=== PATIENT | male | born 1985 | race Caucasian/White ===

== ENCOUNTER 2017-06-18 11:36 | Observation (INO) | payer OTHER ==
[2017-06-18] MEDS ORDERED: TORAdol 30 mg Injection IV ONE ×2 (12:15→14:29)
--- NOTE | 2017-06-18 12:19 | ERPHSYRPT ---
- History of Present Illness Time Seen by Provider: 06/18/17 12:05 Historian: patient Exam Limitations: no limitations Patient Subjective Stated Complaint: pt states he began having abdominal pain that strated when he woke up today at 1100am. pt states he normally does not have bowel movements every day and doesn't unrinate often. denies any vomiting or diarrhea. Triage Nursing Assessment: pt pink, warm, dry. abdomen soft, nontender. bowel sounds present in all 4 quads. pt afebrile. Physician History: 32 y/o male comes to the ER with complaints of abdominal pain around the umbilicus and right lower quadrant that started this morning. Pt describes the pain as sharp, constant, 5/10 and pt has not taken any pain meds. Pt also admits to burping a lot. Pt denies any fever, chills, nausea, vomiting, diarrhea , constipation or urinary symptoms. Pt does do heavy lifting at work. Timing/Duration: today Activities at Onset: sleep Quality: sharpness Abdominal Pain Onset Location: RLQ, periumbilical Pain Radiation: no radiation Severity of Pain-Max: moderate Severity of Pain-Current: moderate Modifying Factors: Improves With: nothing Associated Symptoms: denies symptoms Previous symptoms: no prior history Allergies/Adverse Reactions: No Known Drug Allergies Allergy (Unverified 06/18/17 12:04) Home Medications: Atomoxetine HCl [Strattera] 100 mg PO DAILY 06/18/17 [History] Bupropion HCl [Wellbutrin Xl] 150 mg PO DAILY 06/18/17 [History] Clonazepam 0.5 mg [Klonopin 0.5 MG] 0.5 mg PO DAILY PRN PRN 06/18/17 [ History] Hyoscyamine Sulfate [Levsin-Sl] 0.125 mg SL DAILY PRN PRN 06/18/17 [History] Omeprazole 20 MG [Prilosec 20 mg] 20 mg PO DAILY PRN PRN 06/18/17 [History] Sertraline HCl 25 mg PO DAILY 06/18/17 [History] Zolpidem Tartrate [Ambien] 10 mg PO HS PRN PRN 06/18/17 [History] Hx Tetanus, Diphtheria Vaccination/Date Given: Yes (up to date) Hx Influenza Vaccination/Date Given: No Hx Pneumococcal Vaccination/Date Given: No Immunizations Up to Date: Yes - Review of Systems Constitutional: No Fever, No Chills Eyes: No Symptoms Ears, Nose, & Throat: No Symptoms Respiratory: No Cough, No Dyspnea Cardiac: No Chest Pain, No Edema, No Syncope Abdominal/Gastrointestinal: Abdominal Pain, No Nausea, No Vomiting, No Diarrhea Genitourinary Symptoms: No Dysuria Musculoskeletal: No Back Pain, No Neck Pain Skin: No Rash Neurological: No Dizziness, No Focal Weakness, No Sensory Changes Psychological: No Symptoms Endocrine: No Symptoms All Other Systems: Reviewed and Negative - Past Medical History Pertinent Past Medical History: Yes Neurological History: No Pertinent History ENT History: No Pertinent History Cardiac History: No Pertinent History Respiratory History: No Pertinent History Endocrine Medical History: No Pertinent History Musculoskeletal History: No Pertinent History GI Medical History: Irritable Bowel Psycho-Social History: Attention Deficit Disorder, Depression Male Reproductive Disorders: No Pertinent History - Past Surgical History Past Surgical History: Yes Neuro Surgical History: No Pertinent History Cardiac: No Pertinent History Respiratory: No Pertinent History Gastrointestinal: No Pertinent History Genitourinary: No Pertinent History Musculoskeletal: Orthopedic Surgery Male Surgical History: No Pertinent History Other Surgical History: CARPEL TUNNEL - Social History Smoking Status: Never smoker Exposure to second hand smoke: No Drug Use: none Patient Lives Alone: No - Nursing Vital Signs Nursing Vital Signs: Initial Vital Signs Temperature 98.5 F 06/18/17 11:58 Pulse Rate 88 06/18/17 11:58 Respiratory Rate 18 06/18/17 11:58 Blood Pressure 140/85 06/18/17 11:58 O2 Sat by Pulse Oximetry 100 06/18/17 11:58 Pain Scale Pain Intensity 0 - Physical Exam General Appearance: mild distress, alert Eye Exam: PERRL/EOMI, eyes nml inspection Ears, Nose, Throat Exam: normal ENT inspection, pharynx normal, moist mucous membranes Neck Exam: normal inspection, non-tender, supple, full range of motion Respiratory Exam: normal breath sounds, lungs clear, No respiratory distress Cardiovascular Exam: regular rate/rhythm, normal heart sounds Gastrointestinal/Abdomen Exam: soft, normal bowel sounds, tenderness, guarding ( RLQ and periumbilical tenderness), No mass Back Exam: normal inspection, normal range of motion, No CVA tenderness, No vertebral tenderness Extremity Exam: normal inspection, normal range of motion, pelvis stable Neurologic Exam: alert, oriented x 3, cooperative, normal mood/affect, nml cerebellar function, sensation nml, No motor deficits Skin Exam: normal color, warm, dry SpO2: 100 Oxygen Delivery: Room Air - Course Nursing assessment & vital signs reviewed: Yes Ordered Tests: Medication Summary Discontinued Medications Generic Name Dose Route Start Last Admin Trade Name Freq PRN Reason Stop Dose Admin Hydrocodone Bitart/Acetaminophen 2 tab 06/18/17 18:17 06/19/17 08:32 [place] 5/325 Mg PO 06/23/17 18:16 2 tab Q4H PRN PRN Administration PAIN Hydrocodone Bitart/Acetaminophen 0 tab 06/19/17 10:30 [place] 5/325 Mg PO 06/23/17 18:16 Q4H PRN PRN PAIN Bupivacaine HCl Confirm 06/18/17 15:37 Sensorcaine 0.25% 10 Ml Administered 06/18/17 15:38 Dose 10 ml .ROUTE .STK-MED ONE Bupropion HCl 150 mg 06/19/17 10:00 06/19/17 11:32 Wellbutrin Xl 150 Mg PO 07/19/17 09:59 150 mg DAILY ED Administration Citric Acid/Sodium Citrate Confirm 06/18/17 15:30 Bicitra 30 Ml Cup Administered 06/18/17 15:31 Dose 30 ml .ROUTE .STK-MED ONE Dexamethasone Sodium Phosphate 4 mg 06/18/17 14:29 Decadron 4 Mg Inj IV 06/18/17 14:30 .STK-MED ONE Famotidine 20 mg 06/18/17 15:15 06/18/17 15:23 Pepcid 20 Mg Vial IV 06/18/17 15:16 20 mg 1HRPRIOR ED Administration Fentanyl Citrate 150 mcg 06/18/17 14:29 Sublimaze 250 Mcg/5 Ml IV 06/18/17 14:30 .STK-MED ONE Sodium Chloride 1,000 mls @ 100 mls/hr 06/18/17 14:45 06/18/17 14:46 Sodium Chloride 0.9% 1000 Ml IV 07/18/17 14:44 100 mls/hr .Q10H ED Administration Lactated Ringer's 1,000 mls @ 50 mls/hr 06/18/17 15:15 06/18/17 15:23 Lactated Ringers IV 06/19/17 11:14 50 mls/hr .Q20H ED Administration Cefoxitin Sodium 2 gm in 50 mls @ 100 mls/hr 06/18/17 16:00 06/18/17 15:23 Mefoxin 2 Gm Premix IV 07/18/17 15:59 100 mls/hr ONCALLTOOR ED Administration Lactated Ringer's Confirm 06/18/17 15:37 Lactated Ringers Administered 06/18/17 15:38 Dose 1,000 mls @ ud IV .STK-MED ONE Potassium Chloride/Dextrose/Sod Cl 1,000 mls @ 100 mls/hr 06/18/17 18:30 D5w/0.45ns W/ 40meq Kcl 1000 Ml IV 07/18/17 18:29 .Q10H ED Piperacillin Sod/Tazobactam Sod 3.375 gm in 100 mls @ 200 mls/hr 06/18/17 22: 00 06/19/17 06:23 Zosyn 3.375gm/100 Ml D5w IV 07/18/17 21:59 200 mls/hr Q6HT ED Administration Potassium Chloride/Dextrose/Sod Cl Confirm 06/18/17 18:31 D5w/0.45ns W/ 20meq Kcl 1000 Ml Administered 06/18/17 18:32 Dose 1,000 mls @ ud IV .STK-MED ONE Potassium Chloride/Dextrose/Sod Cl 1,000 mls @ 100 mls/hr 06/18/17 19:00 06/26 18:36 D5w/0.45ns W/ 20meq Kcl 1000 Ml IV 07/18/17 18:59 100 mls/hr .Q10H ED Administration Ketorolac Tromethamine 30 mg 06/18/17 12:15 06/18/17 12:47 Toradol 30 Mg Injection IV 06/18/17 12:16 30 mg STAT ONE Administration Ketorolac Tromethamine Confirm 06/18/17 12:39 Toradol 30 Mg Injection Administered 06/18/17 12:40 Dose 30 mg .ROUTE .STK-MED ONE Ketorolac Tromethamine 30 mg 06/18/17 14:39 Toradol 30 Mg Injection IV 06/23/17 14:38 Q6H PRN PRN PAIN Ketorolac Tromethamine 30 mg 06/18/17 14:29 Toradol 30 Mg Injection IV 06/18/17 14:30 .STK-MED ONE Midazolam HCl 2 mg 06/18/17 14:29 Versed 2 Mg/2 Ml Injection IV 06/18/17 14:30 .STK-MED ONE Morphine Sulfate 2 mg 06/18/17 14:39 Morphine Sulfate 2 Mg Inj IV 06/23/17 14:38 Q4H PRN PRN PAIN Morphine Sulfate 4 mg 06/18/17 18:17 Morphine Sulfate 4 Mg Inj IV 06/23/17 18:16 Q2H PRN PRN PAIN Morphine Sulfate 2 mg 06/18/17 18:24 Morphine Sulfate 2 Mg Inj IV 06/23/17 18:23 Q2H PRN PRN PAIN Ondansetron HCl 4 mg 06/18/17 18:17 Zofran 4 Mg/2 Ml Vial IV 07/18/17 18:16 Q6H PRN PRN NAUSEA/VOMITING Ondansetron HCl 4 mg 06/18/17 14:29 Zofran 4 Mg/2 Ml Vial IV 06/18/17 14:30 .STK-MED ONE Potassium Chloride 40 meq 06/18/17 13:09 06/18/17 13:46 Klor Con 10 Meq PO 06/18/17 13:10 40 meq STAT ONE Administration Potassium Chloride Confirm 06/18/17 13:19 Klor Con 10 Meq Administered 06/18/17 13:20 Dose 40 meq PO .STK-MED ONE Propofol 200 mg 06/18/17 14:29 Diprivan 200 Mg/20 Ml IV 06/18/17 14:30 .STK-MED ONE Rocuronium Orange 20 mg 06/18/17 14:29 Zemuron 100 Mg/10 Ml IV 06/18/17 14:30 .STK-MED ONE Sertraline HCl 25 mg 06/19/17 10:00 06/19/17 11:32 Zoloft 50 Mg Tablet PO 07/19/17 09:59 25 mg DAILY ED Administration Succinylcholine Chloride 20 mg 06/18/17 14:29 Quelicin Fliptop 200 Mg/10 Ml IV 06/18/17 14:30 .STK-MED ONE Lab/Rad Data: Laboratory Result Diagrams 06/18/17 12:26 06/18/17 12:26 Laboratory Results 06/18/17 06/18/17 06/18/17 Range/Units 12:45 12:26 12:26 WBC 12.1 H (4.0-10.5) K/mm3 RBC 4.53 (4.1-5.6) M/mm3 Hgb 12.9 (12.5-18.0) gm/dl Hct 39.2 L (42-50) % MCV 86.5 (78-100) fl MCH 28.5 (26-32) pg MCHC 32.9 (32-36) g/dl RDW 13.1 (11.5-14.0) % Plt Count 268 (150-450) K/mm3 MPV 10.5 H (6-9.5) fl Gran % 82.4 H (36.0-66.0) % Lymphocytes % 10.6 L (24.0-44.0) % Monocytes % 5.6 (0.0-12.0) % Eosinophils % 1.2 (0.00-5.0) % Basophils % 0.2 (0.0-0.4) % Basophils # 0.03 (0-0.4) Sodium 141 (136-145) mEq/L Potassium 3.1 L (3.5-5.1) mEq/L Chloride 108 H (98-107) mEq/L Carbon Dioxide 22.4 (21-32) mEq/L Anion Gap 13.5 (5-15) MEQ/L BUN 10 (9-20) mg/dL Creatinine 0.94 (0.55-1.30) mg/dl Estimated GFR > 60 ML/MIN Glucose 106 (70-110) MG/DL Calcium 8.7 (8.5-10.1) mg/dL Total Bilirubin 0.60 (0.2-1.0) mg/dL AST 29 (15-37) U/L ALT 48 (12-78) U/L Alkaline Phosphatase 112 (46-116) U/L Serum Total Protein 7.0 (6.4-8.2) gm/dL Albumin 3.7 (3.4-5.0) g/dL Amylase 32 (25-115) U/L Lipase 88 (73-393) U/L Ur Collection Type VOID Urine Color YELLOW (YELLOW) Urine Appearance HAZY (CLEAR) Urine pH 7.0 (5-6) Ur Specific [place] 1.015 (1.005-1.025) Urine Protein TRACE (Negative) Urine Ketones TRACE (NEGATIVE) Urine Blood NEGATIVE (0-5) Jaime/ul Urine Nitrite NEGATIVE (NEGATIVE) Urine Bilirubin NEGATIVE (NEGATIVE) Urine Urobilinogen 4 (0-1) mg/dL Ur Leukocyte Esterase TRACE (NEGATIVE) Urine Microscopic RBC 0-2 (0-2) /HPF Urine Microscopic WBC 2-5 (0-5) /HPF Ur Epithelial Cells RARE (FEW) /HPF Urine Bacteria RARE (NEGATIVE) /HPF Urine Mucus MODERATE (NEGATIVE) /HPF Urine Sperm PRESENT (NEGATIVE) /HPF Urine Glucose NEGATIVE (NEGATIVE) mg/dL Specimen Received 06/18/17 1245 - Progress Progress: improved Progress Note: 06/18/17 14:[address] scan abd/pelvis shows an acute appendicitis. Pt has relief of pain after receiving toradol. Pt has a white count of 12,000 but no fever. Pt has been admitted to general surgeon, Dr Germain for [facility] - Departure Time of Disposition: 14:43 Departure Disposition: In-patient Admission Clinical Impression: Appendicitis Qualifiers: Appendicitis type: acute appendicitis Acute appendicitis type: unspecified acute appendicitis type Qualified Code(s): K35.80 - Unspecified acute appendicitis Condition: Stable Critical Care Time: Yes Critical Care Time(excluding separately billable procedures): 30-74 minutes
[2017-06-18] MEDS ORDERED: TORAdol 30 mg Injection ONE (12:39)
[2017-06-18 12:42] LABS: BASOPHIL % 0.2 % (0.0-0.4); Eosinophil % 1.2 % (0.00-5.0); Granulocytes % 82.4 % (36.0-66.0); Lymphocytes % 10.6 % (24.0-44.0); Mean Cell Volume 86.5 fl (78-100); Mean Corpuscular Hemoglobin 28.5 pg (26-32); Mean Platelet Volume 10.5 fl (6-9.5); Monocytes % 5.6 % (0.0-12.0); Platelet Count 268 K/mm3 (150-450); Red Blood Count 4.53 M/mm3 (4.1-5.6); Red Cell Distribution Width 13.1 % (11.5-14.0); White Blood Count 12.1 K/mm3 (4.0-10.5)
[2017-06-18 12:53] LABS: ALBUMIN 3.7 g/dL (3.4-5.0); ALKALINE PHOSPHATASE 112 U/L (46-116); ANION GAP 13.5 MEQ/L (5-15); BLOOD UREA NITROGEN 10 mg/dL (9-20); CHLORIDE 108 mEq/L (98-107); Carbon Dioxide 22.4 mEq/L (21-32); Glucose 106 MG/DL (70-110); LIPASE 88 U/L (73-393); Potassium 3.1 mEq/L (3.5-5.1); SGOT/AST 29 U/L (15-37); SGPT/ALT 48 U/L (12-78); SODIUM 141 mEq/L (136-145)
[2017-06-18] MEDS ORDERED: Klor Con 10 MEQ PO ONE ×2 (13:09→13:19)
[2017-06-18 13:15] LABS: Bilirubin NEGATIVE (NEGATIVE); Blood NEGATIVE Ery/ul (0-5); COMPLETE URINE MICROSCOPIC? YES; Collection Type VOID; Glucose NEGATIVE (NEGATIVE); Leukocyte Esterase TRACE (NEGATIVE)
[2017-06-18 13:16] LABS: ADD URINE CULTURE? YES (NO); Bacteria RARE /HPF (NEGATIVE); Epithelial Cells RARE /HPF (FEW); Mucus MODERATE /HPF (NEGATIVE)
[2017-06-18] MEDS ORDERED: Zemuron 100 MG/10 ML IV ONE (14:29)
[2017-06-18] MEDS ORDERED: Zofran 4 MG/2 ML VIAL IV ONE (14:29)
[2017-06-18] MEDS ORDERED: Versed 2 MG/2 ML Injection IV ONE (14:29)
[2017-06-18] MEDS ORDERED: SUBLIMAZE 250 MCG/5 ML IV ONE (14:29)
[2017-06-18] MEDS ORDERED: DIPRIVAN 200 MG/20 ML IV ONE (14:29)
[2017-06-18] MEDS ORDERED: Quelicin Fliptop 200 MG/10 ML IV ONE (14:29)
[2017-06-18] MEDS ORDERED: BRIDION 200MG/2ML IV ONE (14:29)
[2017-06-18] MEDS ORDERED: Decadron 4 MG INJ IV ONE (14:29)
[2017-06-18] MEDS ORDERED: TORAdol 30 mg Injection IV PRN (14:39)
[2017-06-18] MEDS ORDERED: MORPHINE SULFATE 2 MG INJ IV PRN ×2 (14:39→18:24)
[2017-06-18] MEDS ORDERED: Sodium Chloride 0.9% 1000 ML 1,000 ML IV SCH (14:45)
[2017-06-18] MEDS ORDERED: Pepcid 20 MG VIAL IV SCH (15:15)
[2017-06-18] MEDS ORDERED: Lactated Ringers 1,000 ML IV SCH (15:15)
[2017-06-18] MEDS ORDERED: BICITRA 30 ML CUP ONE (15:30)
[2017-06-18] MEDS ORDERED: Lactated Ringers 1,000 ML IV ONE (15:37)
[2017-06-18] MEDS ORDERED: Sensorcaine 0.25% 10 ML ONE (15:37)
[2017-06-18] MEDS ORDERED: MEFOXIN 2 GM PREMIX** 2 GM/50 ML ML IV SCH (16:00)
--- NOTE | 2017-06-18 16:17 | CONS ---
CONSULT DATE: 06/18/2017 HISTORY: A 32 year-old gentleman had some periumbilical aches and pains that woke him up today at 1100 hours. He denied any vomiting or diarrhea. He denies any fever. He failed to improve so he was taken to the hospital. He denied any bloody stools. PAST MEDICAL HISTORY: He has had some ADHD, some irritable bowel in the past. He denies any heart problems, diabetes or inflammatory bowel disease. PAST SURGICAL HISTORY: Carpal tunnel release in the past. He said he had a cholecystectomy in the past. He also had some foot surgery in the past. HOME MEDICATIONS: He had been on some omeprazole, bupropion, Sertraline, Strattera. According to the record the patient was unsure what medications he is on. ALLERGIES: NKDA. FAMILY HISTORY: Uterine cancer, breast cancer. REVIEW OF SYSTEMS: Twelve systems reviewed per admission assessment, pertinent for as noted above. No chest pain or palpitations. Other systems negative or noncontributory as above and per preadmission questionnaire. His abdominal pain has a little improved since he got some pain medication earlier. LAB DATA AND TESTS: White blood cell count 12.1, hemoglobin 12.9, PLT 268,000. Liver function test unremarkable. Lipase and amylase normal. CT scan preliminary report per the radiologist showed dilated appendix with some inflammatory changes and appendicolith. PHYSICAL EXAMINATION: Temperature 98.5F, pulse 88, blood pressure 140/85. GENERAL: No acute distress. HEENT: Sclera nonicteric. NECK: No JVD. CHEST: Equal excursion, nonlabored breathing. CVS: Regular rate and rhythm. ABDOMEN: Soft. No peritoneal signs. He does have some tenderness mid abdomen in the right lower quadrant. No rebound currently. EXTREMITIES: No significant edema. NEURO: Alert, moving extremities symmetrically. No gross motor deficits noted. IMPRESSION: Acute abdominal pain. CT, history, elevated leukocytosis, history and physical exam suspicious for possible early acute appendicitis. I feel the patient will benefit from diagnostic laparoscopy, laparoscopic appendectomy possible open when OR time available. Risks and benefits explained to the patient and his father including but not limited to bleeding or infection, risk of trocar injury or hernia, small risk bowel, bladder or blood vessel injury, small risk of subsequent intra-abdominal abscess or fistula formation possibly requiring percutaneous or open drainage even at a later date, general risk of anesthesia, deep venous thrombosis, pulmonary embolism, pneumonia but not limited to, risk of obstruction or ileus, risk of ongoing infection, as well as possibility of converting to open procedure, possible longer hospital stay pending the degree of infection. They understand and agree to the planned procedure, will proceed with diagnostic laparoscopy, laparoscopic appendectomy, possible open when OR time available.
--- NOTE | 2017-06-18 16:34 | OP ---
SURGERY DATE/TIME: 06/18/2017 1540 PREOPERATIVE DIAGNOSIS: Acute abdominal pain, acute appendicitis. POSTOPERATIVE DIAGNOSIS: Acute abdominal pain, acute suppurative appendicitis non-perforated. PROCEDURE: Laparoscopic appendectomy. SURGEON: Dr. Derik Harden. ANESTHESIA: General. ESTIMATED BLOOD LOSS: Minimal. INDICATIONS: As noted above. Risks and benefits explained in detail but not limited to, consent was obtained. DESCRIPTION OF PROCEDURE AND FINDINGS: The patient was taken to the operating room. General anesthesia was induced. The abdomen prepped and draped in usual sterile fashion. After official time out and no disagreement with the planned procedure, a transverse incision made at supraumbilical area. Fascia grasped, towel clamp pushing the abdominal wall upwards. Veress needle inserted and tested with saline. Pneumoperitoneum accomplished insufflating from opening pressure of 0 to 15. A 5 mm bladeless port and camera were inserted without difficulty followed by a lower midline 5 mm port and a 12 mm right mid abdomen port. Careful inspection of the abdomen revealed definitely acutely suppurative appendicitis definitely warranted appendectomy. Carefully elevated upwards. Endo-KENIA stapler fired across the base of the appendix and across the residual mesoappendix as was necessary with oozing of the staple line. A couple clips once the clipper became available was used to clip the staple line. The appendix was then placed in the [place] sac pulled free and passed off. Port is replaced. Copious amount of irrigation accomplished in the right lower quadrant irrigating until clear. Good hemostasis noted. It was felt there was no benefit from drain placement. The fascial defect 12 mm port defect closed with puncture closure device under direct vision with the camera with #1 Vicryl. Pneumoperitoneum decompressed. The wound is irrigated out. Skin incision closed with 4-0 Vicryl. Steri-Strips and sterile dressing applied. 0.25% Marcaine local injected along the skin incision fascial defects. The patient tolerated the procedure well. There were no immediate complications. His father was not out in the waiting area initially, will double check if he is in the hospital.
[2017-06-18] MEDS ORDERED: Zofran 4 MG/2 ML VIAL IV PRN (18:17)
[2017-06-18] MEDS ORDERED: MORPHINE SULFATE 4 MG INJ IV PRN (18:17)
[2017-06-18] MEDS ORDERED: D5w/0.45NS W/ 40MEQ KCl 1000 Ml 1,000 ML IV SCH (18:30)
[2017-06-18] MEDS ORDERED: D5W/0.45NS W/ 20mEq KCl 1000 ML 1,000 ML IV ONE (18:31)
[2017-06-18] MEDS ORDERED: D5W/0.45NS W/ 20mEq KCl 1000 ML 1,000 ML IV SCH (19:00)
[2017-06-18] MEDS: NORCO 5/325 MG PO PRN (20:36)
[2017-06-18] MEDS: Zosyn 3.375GM/100 Ml D5W 3.375 GM/100 ML IVPB IV SCH (20:38)
--- NOTE | 2017-06-18 21:22 | XRAY ---
Indication: Right lower quadrant pain. Multiple contiguous axial images obtained through the abdomen and pelvis using 80 cc Isovue-370 contrast only. Comparison: None Lung bases are. Heart is not enlarged. Noncontrasted stomach and bowel loops appear nonobstructed. Appendix is distended up to 11 mm with wall thickening/enhancement and appendicolith favoring acute appendicitis. No free fluid/air. 7 mm right mid renal cortical cyst. Previous cholecystectomy. Remaining liver, pancreas, spleen, adrenal glands, kidneys, ureters, urinary bladder, and aorta appear unremarkable. No pathologic retroperitoneal lymphadenopathy. Osseous structures intact. Impression: 1. CT findings favoring acute appendicitis. No perforation/complications. 2. Subcentimeter right renal cyst. Comment: Preliminary interpretation was made by [facility]. No discrepancy. CTDI 17.76
[2017-06-19] MEDS: Zosyn 3.375GM/100 Ml D5W 3.375 GM/100 ML IVPB IV SCH ×2 (01:23→06:23)
[2017-06-19 05:50] LABS: Mean Cell Volume 87.7 fl (78-100); Mean Corpuscular Hemoglobin 28.2 pg (26-32); Mean Platelet Volume 10.6 fl (6-9.5); Platelet Count 276 K/mm3 (150-450); Red Blood Count 4.39 M/mm3 (4.1-5.6); Red Cell Distribution Width 13.1 % (11.5-14.0); White Blood Count 14.6 K/mm3 (4.0-10.5)
[2017-06-19] MEDS: NORCO 5/325 MG PO PRN (08:32)
[2017-06-19] MEDS ORDERED: MEDICATION INTERVENTION MC PRN (08:35)
[2017-06-19] MEDS ORDERED: NON-FORMULARY ITEM (Sertraline Hcl [Sertraline Hcl] 25 MG) PO SCH (10:00)
[2017-06-19] MEDS ORDERED: Wellbutrin XL 150 MG PO SCH (10:00)
[2017-06-19] MEDS ORDERED: ZOLOFT 50 MG TABLET PO SCH (10:00)
[2017-06-19] MEDS ORDERED: ATOMOXETINE HCL 100 MG PO SCH (10:00)
[2017-06-19] MEDS ORDERED: NORCO 5/325 MG PO PRN (10:30)
[2017-06-19 11:44] VITALS: BP 121/66; PULSE 85
--- NOTE | 2017-06-19 12:29 | PCM.DCORD ---
- Discharge Discharge Date: 06/19/17 Disposition: Home, Self-Care Condition: Stable Prescriptions: New Amoxicillin/Potassium Clav [Augmentin 875 mg (Amox Tr-K Clv 875-125 mg)] 1 each PO BID #0 tablet Continue Bupropion HCl [Wellbutrin Xl] 150 mg PO DAILY Sertraline HCl 25 mg PO DAILY Atomoxetine HCl [Strattera] 100 mg PO DAILY Omeprazole 20 MG [Prilosec 20 mg] 20 mg PO DAILY PRN PRN PRN Reason: Stomach Upset Zolpidem Tartrate [Ambien] 10 mg PO HS PRN PRN PRN Reason: Anxiety Hyoscyamine Sulfate [Levsin-Sl] 0.125 mg SL DAILY PRN PRN PRN Reason: Stomach Upset Clonazepam 0.5 mg [Klonopin 0.5 MG] 0.5 mg PO DAILY PRN PRN PRN Reason: Anxiety Follow up with: HIRA SALDANA [Primary Care Provider] -
--- NOTE | 2017-06-19 12:29 | PCM.HP ---
History of Present Illness - Chief Complaint Chief Complaint: appendix Date: 06/19/17 History of Present Illness: is a 32 year old male. Who presented with some periumbilical pain that woke him up yesterday and began to worsen to the point of presenting to the ED. He denied any vomiting or diarrhea. He denies any fever. IN ED he had CT suggestive of acute appendicitis and an elevated wbc, Dr. Harden was thus consulted and he was taken to OR yesterday for lap appy that was uncomplicated and he is feeling well today with some mild soreness in his right lower quadrant. He has been eating and drinking with no complications. Urinating well no bowel movement yet. He is ambulating without difficulty. - Review of Systems Constitutional: No Fever, No Chills Eyes: No Symptoms Ears, Nose, & Throat: No Symptoms Respiratory: No Cough, No Short Of Breath Cardiac: No Chest Pain, No Edema, No Syncope Abdominal/Gastrointestinal: No Abdominal Pain, No Nausea, No Vomiting, No Diarrhea Genitourinary Symptoms: No Dysuria Musculoskeletal: No Back Pain, No Neck Pain Skin: No Rash Neurological: No Dizziness, No Focal Weakness, No Sensory Changes Psychological: No Symptoms Endocrine: No Symptoms Hematologic/Lymphatic: No Symptoms Immunological/Allergic: No Symptoms Medications & Allergies Home Medications: Home Medication List Atomoxetine HCl [Strattera] 100 mg PO DAILY 06/18/17 [History Confirmed 06/18/17 ] Bupropion HCl [Wellbutrin Xl] 150 mg PO DAILY 06/18/17 [History Confirmed ] Clonazepam 0.5 mg [Klonopin 0.5 MG] 0.5 mg PO DAILY PRN PRN 06/18/17 [ History Confirmed 06/18/17] Hyoscyamine Sulfate [Levsin-Sl] 0.125 mg SL DAILY PRN PRN 06/18/17 [History Confirmed 06/18/17] Omeprazole 20 MG [Prilosec 20 mg] 20 mg PO DAILY PRN PRN 06/18/17 [History Confirmed 06/18/17] Sertraline HCl 25 mg PO DAILY 06/18/17 [History Confirmed 06/18/17] Zolpidem Tartrate [Ambien] 10 mg PO HS PRN PRN 06/18/17 [History Confirmed 06/18] Amoxicillin/Potassium Clav [Augmentin 875 mg (Amox Tr-K Clv 875-125 mg)] 1 each PO BID #0 tablet 06/19/17 [Rx] Allergies/Adverse Reactions: Allergies Allergy/AdvReac Type Severity Reaction Status Date / Time No Known Drug Allergies Allergy Unverified 06/18/17 12:04 - Past Medical History Past Medical History: Yes Neurological History: No Pertinent History ENT History: No Pertinent History Cardiac History: No Pertinent History Respiratory History: No Pertinent History Endocrine Medical History: No Pertinent History Musculoskelatal History: No Pertinent History GI Medical History: Irritable Bowel History: No Pertinent History Pyscho-Social History: Attention Deficit Disorder, Depression, Other Male Reproductive Disorders: No Pertinent History Comment: asperger's - Past Surgical History Past Surgical History: Yes Neuro Surgical History: No Pertinent History Cardiac History: No Pertinent History Respiratory Surgery: No Pertinent History GI Surgical History: No Pertinent History Genitourinary Surgical Hx: No Pertinent History Musculskeletal Surgical Hx: Orthopedic Surgery Male Surgical History: No Pertinent History Other Surgical History: carpel tunnel, grabiel feet - Social History Smoking Status: Never smoker Exposure to second hand smoke: No Alcohol: None Drug Use: none - Physical Exam Vital Signs: Vital Signs - 24 hr Temp Pulse Resp BP Pulse Ox 06/19/17 11:43 97.9 F 85 18 121/66 96 06/19/17 07:43 98.1 F 88 18 101/49 98 06/19/17 04:04 97.9 F 82 16 99/52 94 L 06/18/17 23:45 97.7 F 94 H 18 115/83 95 06/18/17 20:30 97.8 F 97 H 17 113/55 94 L 06/18/17 19:30 97.9 F 103 H 17 113/61 93 L 06/18/17 18:30 97.9 F 99 H 18 121/72 97 06/18/17 17:56 97.9 F 75 14 126/65 94 L 06/18/17 17:50 97.9 F 75 14 126/65 94 L 06/18/17 17:25 97.9 F 75 14 110/57 95 06/18/17 15:20 98.0 F 104 H 18 129/61 96 06/18/17 15:18 98.0 F 104 H 129/61 06/18/17 15:12 89 18 126/58 100 06/18/17 15:02 98 F 104 H 18 129/61 96 06/18/17 14:53 89 18 126/58 100 06/18/17 14:44 100 06/18/17 13:51 73 18 130/77 98 06/18/17 13:04 78 16 122/76 98 Oxygen-Last 24 hours O2 Percentage 2 Liters = 28% General Appearance: no apparent distress, alert Neurologic Exam: alert, oriented x 3, cooperative, normal mood/affect, nml cerebellar function, nml station & gait, sensation nml, No motor deficits Eye Exam: PERRL/EOMI, eyes nml inspection Ears, Nose, Throat Exam: normal ENT inspection, TMs normal, pharynx normal, moist mucous membranes Neck Exam: normal inspection, non-tender, supple, full range of motion Respiratory Exam: normal breath sounds, lungs clear, No respiratory distress Cardiovascular Exam: regular rate/rhythm, normal heart sounds, normal peripheral pulses Gastrointestinal/Abdomen Exam: soft, normal bowel sounds, tenderness (incisions clean and dry mild right Lower quadrant tendneress), No distention, No mass, No guarding Back Exam: normal inspection, normal range of motion, No CVA tenderness, No vertebral tenderness Extremity Exam: normal inspection, normal range of motion, pelvis stable Skin Exam: normal color, warm, dry, No rash Lymphatic Exam: No adenopathy Results - Labs Lab/Micro Results: Lab Results-Last 24 Hours 06/19/17 Range/Units 05:25 WBC 14.6 H (4.0-10.5) K/mm3 RBC 4.39 (4.1-5.6) M/mm3 Hgb 12.4 L (12.5-18.0) gm/dl Hct 38.5 L (42-50) % MCV 87.7 (78-100) fl MCH 28.2 (26-32) pg MCHC 32.2 (32-36) g/dl RDW 13.1 (11.5-14.0) % Plt Count 276 (150-450) K/mm3 MPV 10.6 H (6-9.5) fl Assessment/Plan (1) Appendicitis Status: Acute Qualifiers: Appendicitis type: acute appendicitis Acute appendicitis type: unspecified acute appendicitis type Qualified Code(s): K35.80 - Unspecified acute appendicitis Assessment & Plan: symptoms improving tolerating po well he was admitted to my service but I was not contacted until 830 this am about his admission, he is now doing well it appears the surgery has improved his symptoms he is tolerating po well Dr. Baer has seen today and is comfortable with discharge today f/u with Dr. Harden and finish the 5 days of augmentin by Dr. Harden. Code(s): K37 - UNSPECIFIED APPENDICITIS (2) Asperger syndrome Status: Chronic Code(s): F84.5 - ASPERGER'S SYNDROME (3) Depression Status: Chronic Code(s): F32.9 - MAJOR DEPRESSIVE DISORDER, SINGLE EPISODE, UNSPECIFIED
[2017-08-01 01:43] VITALS: O2SAT 100
== END 2017-06-19 14:30 | disposition home or self-care (01) ==
LOC: ED 11:36 → MED SURG 14:55
PROVIDERS: ADMIT Family Medicine; ATTEND Family Medicine
PROC: 0DTJ4ZZ Resection of Appendix, Percutaneous Endoscopic Approach (ICD-10-PCS; principal; 2017-06-18)
DX: K35.80 Unspecified acute appendicitis (principal); F84.5 Asperger's syndrome; F32.9 Major depressive disorder, single episode, unspecified; Z79.899 Other long term (current) drug therapy
CPT/HCPCS: 00840; 36000; 36415; 74177; 80053; 81000; 82150; 83690; 85025; 85027; 87086; 88304; 96374; 99140; 99285; G0378; J0330; J0694; J1100; J1885; J2250; J2405; J2543; J2704; J3010; A9270-GY

== ENCOUNTER 2022-05-13 03:12 | Emergency (ER) | payer OTHER ==
[2022-05-13] MEDS ORDERED: Zofran 4 MG/2 ML VIAL IV ONE (03:41)
[2022-05-13] MEDS ORDERED: Zofran 4 MG/2 ML VIAL ONE (03:44)
[2022-05-13 03:50] LABS: Absolute Neutrophil Ct (ANC) 8.48 x10^3/uL (1.4-6.9); Basophil (Absolute #) 0.08 x10^3/uL (0-0.4); Eosinophil (Absolute #) 0.24 x10^3/uL (0-0.5); Hematocrit 41.6 % (42-50); Hemoglobin 13.9 g/dL (12.5-18.0); Lymphocyte (Absolute #) 1.94 x10^3/uL (1.0-4.6); Lymphocytes % 16.4 % (24.0-44.0); Mean Cell Volume 87.9 fL (78-100); Mean Corpuscular Hemoglobin 29.4 pg (26-32); Mean Corpuscular Hgb Concent. 33.4 g/dL (32-36); Mean Platelet Volume 10.1 fL (7.5-11.0); Monocyte (Absolute #) 1.04 x10^3/uL (0.0-1.3); Monocytes % 8.8 % (0.0-12.0); Neutrophil % 71.8 % (36.0-66.0); Platelet Count 324 x10^3/uL (150-450); Red Blood Count 4.73 x10^6/uL (4.1-5.6); Red Cell Distribution Width 12.5 % (11.5-14.0); White Blood Count 11.8 x10^3/uL (4.0-10.5)
[2022-05-13 03:52] LABS: ALBUMIN 4.7 g/dL (3.5-5.0); ALKALINE PHOSPHATASE 105 U/L (38-126); AMYLASE 72 U/L (30-110); ANION GAP 15.1 MEQ/L (5-15); BLOOD UREA NITROGEN 12 mg/dL (9-20); CHLORIDE 102 mmol/L (98-107); Calcium 10.2 mg/dL (8.4-10.2); Carbon Dioxide 24 mmol/L (22-30); Creatinine 1 1.08 mg/dL (0.66-1.25); EST GLOMERULAR FILTRATION RATE > 60.0 ML/MIN; Glucose 104 mg/dL (74-106); LIPASE 39 U/L (23-300); Potassium 3.3 mmol/L (3.5-5.1); SGOT/AST 42 U/L (17-59); SGPT/ALT 51 U/L (0-50); SODIUM 138 mmol/L (137-145); Total Protein 7.6 g/dL (6.3-8.2)
--- NOTE | 2022-05-13 04:29 | ERPHSYRPT ---
- History of Present Illness Time Seen by Provider: 05/13/22 03:30 Historian: patient, family Exam Limitations: no limitations Patient Subjective Stated Complaint: abd pain 2 days ago and it went away. Abd pain returned this morning. Triage Nursing Assessment: pt ambulated into ER, father with him. Pt c/o rt mid abd pain which began 2 days ago and he went to [facility] for it, xrays obtained. Pt scheduled for CT scan on 05/21/22. Abd pain resolved and returned again around 10pm. Abd soft with active bs x4 quad, nontender on palpation. L BM 05/12/22. Pt does not have his appendix or gallbladder. Physician History: This is a 37-year-old white male patient of Dr. Leyva who presents with a history of 3 days of initially generalized abdominal pain with localization now in the right lower quadrant. Patient has had an appendectomy and cholecystectomy in the past. Approxi-2 days ago patient went to [facility] and a KUB was performed which shows nonacute, nonobstructed picture with minimal scattered colonic fecal debris. The greatest amount is in the right hemicolon. Patient denies nausea vomiting or diarrhea. The pain improved with oral Tylenol. He has not had any fevers or chills. He denies chest pain. He denies shortness of breath. Timing/Duration: day(s) (Approximately 3 days) Quality: aching (Right lower abdominal pain) Abdominal Pain Onset Location: RLQ Pain Radiation: no radiation Severity of Pain-Max: mild (To moderate) Severity of Pain-Current: mild (To moderate) Associated Symptoms: denies symptoms Previous symptoms: no prior history Allergies/Adverse Reactions: No Known Drug Allergies Allergy (Verified 05/13/22 03:28) Home Medications: Atomoxetine HCl [Strattera] 100 mg PO DAILY 06/18/17 [History] Hyoscyamine Sulfate [Levsin-Sl] 0.125 mg SL DAILY PRN PRN 06/18/17 [History] Sertraline HCl 75 mg PO DAILY 06/18/17 [History] buPROPion HCL [Wellbutrin Xl] 450 mg PO DAILY 06/18/17 [History] Meloxicam 15 mg [Meloxicam 15 MG] 1 tab PO DAILY 05/13/22 [History] hydrOXYzine pamoate [Hydroxyzine Pamoate] 25 mg PO HS 05/13/22 [History] Hx Tetanus, Diphtheria Vaccination/Date Given: No Hx Influenza Vaccination/Date Given: No Hx Pneumococcal Vaccination/Date Given: No Immunizations Up to Date: No Travel Risk - International Travel Have you traveled outside of the country in past 3 weeks: No - Coronavirus Screening Are you exhibiting any of the following symptoms?: No Close contact with a COVID-19 positive Pt in past 14-21 Days: No - Vaccine Status Have you recieved a Covid-19 vaccination: No - Review of Systems Constitutional: No Symptoms Eyes: No Symptoms Ears, Nose, & Throat: No Symptoms Respiratory: No Symptoms Cardiac: No Symptoms Abdominal/Gastrointestinal: Abdominal Pain (Right lower quadrant), No Nausea, No Vomiting, No Diarrhea, No Constipation Genitourinary Symptoms: No Symptoms Musculoskeletal: No Symptoms Skin: No Symptoms Neurological: No Symptoms Psychological: No Symptoms Endocrine: No Symptoms Hematologic/Lymphatic: No Symptoms Immunological/Allergic: No Symptoms All Other Systems: Reviewed and Negative - Past Medical History Pertinent Past Medical History: Yes Neurological History: No Pertinent History ENT History: No Pertinent History Cardiac History: No Pertinent History Respiratory History: No Pertinent History Endocrine Medical History: No Pertinent History Musculoskeletal History: No Pertinent History GI Medical History: Gallbladder Disease, Irritable Bowel History: No Pertinent History Psycho-Social History: Attention Deficit Disorder, Depression Male Reproductive Disorders: No Pertinent History Other Medical History: asperger's - Past Surgical History Past Surgical History: Yes Neuro Surgical History: No Pertinent History Cardiac: No Pertinent History Respiratory: No Pertinent History Gastrointestinal: Appendectomy, Cholecystectomy Genitourinary: No Pertinent History Musculoskeletal: Orthopedic Surgery Male Surgical History: No Pertinent History Other Surgical History: CARPEL TUNNEL, spurs removed from bilat feet. - Social History Smoking Status: Never smoker Exposure to second hand smoke: No Drug Use: none Patient Lives Alone: No - Nursing Vital Signs Nursing Vital Signs: Initial Vital Signs Temperature 98.8 F 05/13/22 03:17 Pulse Rate 95 H 05/13/22 03:17 Respiratory Rate 22 05/13/22 03:17 Blood Pressure 164/109 05/13/22 03:17 O2 Sat by Pulse Oximetry 100 05/13/22 03:17 Pain Scale Pain Intensity 8 - Physical Exam General Appearance: no apparent distress, alert, anxiety Eye Exam: PERRL/EOMI, eyes nml inspection Ears, Nose, Throat Exam: normal ENT inspection, moist mucous membranes Neck Exam: normal inspection, non-tender, supple, full range of motion Respiratory Exam: normal breath sounds, lungs clear, airway intact, No chest tenderness, No respiratory distress Cardiovascular Exam: regular rate/rhythm, normal heart sounds, normal peripheral pulses Gastrointestinal/Abdomen Exam: soft, normal bowel sounds, tenderness (To palpation right side abdomen), guarding (Mild with palpation right lower a bdomen), No pulsatile mass, No rebound Rectal Exam: not done Back Exam: normal inspection, normal range of motion, No CVA tenderness, No vertebral tenderness Extremity Exam: normal inspection, normal range of motion, pelvis stable Neurologic Exam: alert, oriented x 3, cooperative, stone gluer II-XII nml as tested, normal mood/affect, nml cerebellar function, nml station & gait, sensation nml Skin Exam: normal color, warm, dry Lymphatic Exam: No adenopathy SpO2 Interpretation: normal SpO2: 100 O2 Delivery: Room Air - Course Nursing assessment & vital signs reviewed: Yes Ordered Tests: Active Orders 24 hr Category Date Time Status IV Insertion STAT Care 05/13/22 03:41 Active ABDOMEN AND PELVIS W/0 CONTRAS [CT] Stat Exams 05/13/22 03:41 Taken AMYLASE Stat Lab 05/13/22 03:41 Completed CBC W DIFF Stat Lab 05/13/22 03:41 Completed CMP Stat Lab 05/13/22 03:41 Completed LIPASE Stat Lab 05/13/22 03:41 Completed UA W/RFX CULTURE Stat Lab 05/13/22 Ordered Medication Summary Discontinued Medications Generic Name Dose Route Start Last Admin Trade Name Adriel PRN Reason Stop Dose Admin Ciprofloxacin Confirm 05/13/22 05:03 Ciprofloxacin 500 Mg Tablet Administered 05/13/22 05:04 Dose 500 mg .ROUTE .STK-MED ONE Ketorolac Tromethamine Confirm 05/13/22 05:02 Ketorolac Tromethamine 30 Mg/Ml Inj Administered 05/13/22 05:03 Dose 30 mg .ROUTE .STK-MED ONE Ondansetron HCl 4 mg 05/13/22 03:41 05/13/22 03:45 Ondansetron Hcl 4 Mg/2 Ml Vial IV 05/13/22 03:42 4 mg STAT ONE Administration Ondansetron HCl Confirm 05/13/22 03:44 Ondansetron Hcl 4 Mg/2 Ml Vial Administered 05/13/22 03:45 Dose 4 mg .ROUTE .STK-MED ONE Tamsulosin HCl 0.4 mg 05/13/22 05:04 Tamsulosin Hcl 0.4 Mg Cap PO 05/13/22 05:05 STAT ONE Tamsulosin HCl Confirm 05/13/22 05:03 Tamsulosin Hcl 0.4 Mg Cap Administered 05/13/22 05:04 Dose 0.4 mg .ROUTE .STK-MED ONE Lab/Rad Data: Laboratory Result Diagrams 05/13/22 03:41 05/13/22 03:41 Laboratory Results 05/13/22 05/13/22 Range/Units 03:41 03:41 WBC 11.8 H (4.0-10.5) x10^3/uL RBC 4.73 (4.1-5.6) x10^6/uL Hgb 13.9 (12.5-18.0) g/dL Hct 41.6 L (42-50) % MCV 87.9 (78-100) fL MCH 29.4 (26-32) pg MCHC 33.4 (32-36) g/dL RDW 12.5 (11.5-14.0) % Plt Count 324 (150-450) x10^3/uL MPV 10.1 (7.5-11.0) fL Gran % 71.8 H (36.0-66.0) % Immature Gran % (Auto) 0.3 (0.00-0.4) % Nucleat RBC Rel Count 0.0 (0.00-0.1) % Eos # (Auto) 0.24 (0-0.5) x10^3/uL Immature Gran # (Auto) 0.03 (0.00-0.03) x10^3u/L Absolute Lymphs (auto) 1.94 (1.0-4.6) x10^3/uL Absolute Monos (auto) 1.04 (0.0-1.3) x10^3/uL Absolute Nucleated RBC 0.00 (0.00-0.01) x10^3u/L Lymphocytes % 16.4 L (24.0-44.0) % Monocytes % 8.8 (0.0-12.0) % Eosinophils % 2.0 (0.00-5.0) % Basophils % 0.7 (0.0-0.4) % Absolute Granulocytes 8.48 H (1.4-6.9) x10^3/uL Basophils # 0.08 (0-0.4) x10^3/uL Sodium 138 (137-145) mmol/L Potassium 3.3 L (3.5-5.1) mmol/L Chloride 102 (98-107) mmol/L Carbon Dioxide 24 (22-30) mmol/L Anion Gap 15.1 H (5-15) MEQ/L BUN 12 (9-20) mg/dL Creatinine 1.08 (0.66-1.25) mg/dL Estimated GFR > 60.0 ML/MIN Glucose 104 (74-106) mg/dL Calcium 10.2 (8.4-10.2) mg/dL Total Bilirubin 0.40 (0.2-1.3) mg/dL AST 42 (17-59) U/L ALT 51 H (0-50) U/L Alkaline Phosphatase 105 (38-126) U/L Serum Total Protein 7.6 (6.3-8.2) g/dL Albumin 4.7 (3.5-5.0) g/dL Amylase 72 (30-110) U/L Lipase 39 (23-300) U/L - Progress Progress: improved, pain not gone completely Progress Note: 05/13/22 05:06 CAT scan of the abdomen pelvis without contrast shows a proximal ureteral stone on the right side that measured approximately 3 to 4 mm. There is mild hydroureter and mild hydronephrosis. Medical decision making: This patient has a ureteral stone on the right side. There is some back pressure present. Patient is unable to void at this time. I think it is reasonable and safe for the patient to receive antibiotics since this process is been going on for approximately 3 days and he is unable to provide us with a urine sample at this time. Patients father sees a urologist on a routine basis. He is going to make an appointment for his son later this morning. Counseled pt/family regarding: lab results, diagnosis, need for follow-up, rad results - Departure Departure Disposition: Home Clinical Impression: Right ureteral calculus Condition: Stable Critical Care Time: No Referrals: RUBY LEYVA MD [Primary Care Provider] - Follow up/PCP as directed Additional Instructions: Drink plenty of fluids. Call the urologist this morning to make arrangements for follow-up appointment. Take your medications as prescribed. Make sure you take ibuprofen 600 mg orally with food 3 times a day for the next 5 days. May also use Tylenol for pain control Prescriptions: Ciprofloxacin [Cipro 500 MG] 500 mg PO BID #14 tablet Tamsulosin HCl 0.4 mg [Flomax 0.4 MG] 0.4 mg PO DAILY #7 cap
[2022-05-13] MEDS ORDERED: TORAdol 30 mg Injection ONE (05:02)
[2022-05-13] MEDS ORDERED: Flomax 0.4 MG ONE (05:03)
[2022-05-13] MEDS ORDERED: Cipro 500 MG ONE (05:03)
[2022-05-13] MEDS ORDERED: Flomax 0.4 MG PO ONE (05:04)
[2022-05-13] MEDS ORDERED: TORAdol 30 mg Injection IV ONE (05:05)
[2022-05-13] MEDS ORDERED: Levofloxacin 500 MG Tablet PO ONE (05:05)
[2022-05-13 05:07] VITALS: BP 134/86; PULSE 80
[2022-05-13] MEDS ORDERED: Levofloxacin 500 MG Tablet ONE (05:08)
[2022-05-13 05:09] VITALS: O2SAT 100
--- NOTE | 2022-05-13 22:55 | XRAY ---
Exam: CT of the abdomen and pelvis without IV contrast from 05/13/2022. CTDI: 5.17 mGy Comparison: CT of the abdomen and pelvis with IV contrast from 06/28/2017. Indication: 37-year-old male with abdominal pain for past 6 hours that is increasing in severity. The patient gives a history of prior cholecystectomy and appendectomy. Technique: Non-IV contrast axial images were obtained through the abdomen and pelvis. Reconstructed coronal and sagittal images were created and reviewed. Findings: The visualized lung bases appear clear. A small amount of oral contrast is seen within the stomach and small bowel which could relate to medication. The liver and spleen appear unremarkable. Surgical clips are seen within the subhepatic space consistent with prior cholecystectomy. No intrahepatic biliary duct distention is seen. The pancreas and adrenal glands appear unremarkable. There appears to be some mild right renal swelling with mild hydronephrosis and proximal right hydroureter down to the level of an obstructing stone on axial image #49 within the proximal right ureter. This stone measures about 4 mm x 3 mm x 2 mm. The left ureter and urinary bladder appear unremarkable. A small amount of atherosclerotic vascular calcification is seen within the distal abdominal aorta. No abdominal aortic aneurysm or abnormal retroperitoneal lymphadenopathy is seen. No free intraperitoneal air or bowel containing ventral hernia is seen. I see no abnormal bowel distention to suggest bowel obstruction. No definite mucosal wall thickening is seen. Some surgical clips are seen medial to the cecum which are probably due to prior appendectomy. The appendix is not seen. No pelvic mass or abnormal pelvic lymphadenopathy is seen. Some calcified pelvic phleboliths are seen. The seminal vesicles and prostate gland appear unremarkable. There is no free fluid within the pelvis. The skeleton reveals no acute fracture or aggressive bone lesion. Some tiny Schmorl's nodes are seen within the vertebral endplates of the lower thoracic spine. Impression: 1. Mild right-sided hydroureteronephrosis down to the level of a 4 mm x 3 mm 2 mm obstructing calculus within the proximal right ureter. 2. The patient is status post cholecystectomy and appendectomy. 3. No other acute process is seen within the abdomen or pelvis.
== END 2022-05-13 05:39 | disposition home or self-care (01) ==
LOC: ED 03:12
DX: N13.2 Hydronephrosis with renal and ureteral calculous obstruction (principal); R10.31 Right lower quadrant pain; Z79.899 Other long term (current) drug therapy; Z28.310 Unvaccinated for COVID-19
CPT/HCPCS: 36000; 36415; 74176; 80053; 82150; 83690; 85025; 96374; 96375; 99284; J1885; J2405; A9270-GY